=== PATIENT | female | born 1940 | race Caucasian/White ===

== ENCOUNTER 2019-11-28 13:06 | Inpatient (IN) | payer MEDICAID ==
[~2019-11-28] VITALS: Ht 157.5 cm; Wt 88.9 kg
[2019-11-28 18:00] VITALS: BP 136/62
[2019-11-28] MEDS ORDERED: DEXTROSE 50%-WATER 25 GM/50 ML SYRINGE IVP PRN (18:45)
[2019-11-28] MEDS ORDERED: ACETAMINOPHEN 325 MG TABLET PO PRN (20:00)
[2019-11-28] MEDS: DOCUSATE SODIUM 100 MG CAPSULE PO SCH (21:13)
[2019-11-28] MEDS: ATORVASTATIN CALCIUM 40 MG TABLET PO SCH (21:13)
[2019-11-28] MEDS: SENNA 187 MG TABLET PO SCH (21:13)
[2019-11-28] MEDS: INSULIN LISPRO 100 UNITS/ML SQ PRN (21:14)
[2019-11-29 00:53] VITALS: BP 138/68
[2019-11-29 04:49] LABS: GLUCOMETER DEV NAME(LOC) 2WR.1C; GLUCOSE,POINT OF CARE 185 MG/DL (70-110)
[2019-11-29] MEDS ORDERED: METF-961 PO (05:10)
[2019-11-29] MEDS ORDERED: LOSA25TA21 PO (05:10)
[2019-11-29 06:18] LABS: GLUCOMETER DEV NAME(LOC) 2WR.2B; GLUCOSE,POINT OF CARE 117 MG/DL (70-110)
[2019-11-29 07:06] LABS: BASOPHILS % (AUTO) 0.6 % (0.0-2.0); EOSINOPHILS % (AUTO) 3.2 % (1.0-6.0); HEMATOCRIT 38.6 % (36-46); HEMOGLOBIN 13.3 g/dL (12.0-16.0); LYMPHOCYTES # (AUTO) 1.9 K/uL (1.0-4.8); LYMPHOCYTES % (AUTO) 22.4 % (22.0-44.0); MEAN CORPUSCULAR HEMOGLOBIN 31.6 pg (26.0-34.0); MEAN CORPUSCULAR HGB CONC 34.4 G/dL (31.0-37.0); MEAN CORPUSCULAR VOLUME 92 fL (80-100); MONOCYTES # (AUTO) 0.7 K/uL (0.1-1.0); MONOCYTES % (AUTO) 7.6 % (2.0-9.0); NEUTROPHILS # (AUTO) 5.7 K/uL (1.8-7.7); NEUTROPHILS % (AUTO) 66.2 % (40.0-70.0); PLATELET COUNT (AUTO) 274 K/uL (150-450); RED CELL DISTRIBUTION WIDTH 13.3 % (11.5-14.5)
[2019-11-29 07:28] LABS: ALANINE AMINOTRANSFERASE 29 U/L (12-78); ALKALINE PHOSPHATASE 67 U/L (46-116); ANION GAP 8 mmol/L (8-16); ASPARTATE AMINOTRANSFERASE 20 U/L (15-37); BILIRUBIN,TOTAL 0.8 mg/dL (0.1-1.0); CALCIUM, TOTAL 8.7 mg/dL (8.8-10.5); CARBON DIOXIDE 27 mmol/L (22-29); CHLORIDE 103 mmol/L (98-107); CREATININE 0.74 mg/dL (0.60-1.30); GLUCOSE,RANDOM 138 mg/dL (70-110); POTASSIUM 3.5 mmol/L (3.5-5.1); SODIUM SERUM 138 mmol/L (136-145); TOTAL PROTEIN, SERUM 6.5 g/dL (6.4-8.2); UREA NITROGEN, BLOOD 15 mg/dL (7-18)
[2019-11-29 07:29] LABS: GLOMERULAR FILTR. RATE CALC > 60 mL/min (>60)
[2019-11-29 07:40] LABS: ALBUMIN 2.8 g/dL (3.4-5.0)
[2019-11-29 08:48] VITALS: BP 120/47
[2019-11-29] MEDS: ASPIRIN 81 MG EC TABLET PO SCH (09:19)
[2019-11-29] MEDS: DOCUSATE SODIUM 100 MG CAPSULE PO SCH ×2 (09:19→21:03)
[2019-11-29] MEDS: MetFORMIN HCL 500 MG TABLET PO SCH ×2 (09:19→20:52)
[2019-11-29] MEDS: LOSARTAN POTASSIUM 50 MG TABLET PO SCH (09:19)
[2019-11-29] MEDS: MECLIZINE HCL 25 MG TABLET PO PRN (13:58)
[2019-11-29 17:11] LABS: GLUCOMETER DEV NAME(LOC) 2WR.1C; GLUCOSE,POINT OF CARE 134 MG/DL (70-110)
[2019-11-29 19:27] LABS: GLUCOMETER DEV NAME(LOC) 2WR.2B; GLUCOSE,POINT OF CARE 102 MG/DL (70-110)
[2019-11-29 20:13] VITALS: BP 130/62
[2019-11-29] MEDS: ATORVASTATIN CALCIUM 40 MG TABLET PO SCH (21:03)
[2019-11-29] MEDS: SENNA 187 MG TABLET PO SCH (21:03)
[2019-11-29 21:56] LABS: GLUCOMETER DEV NAME(LOC) 2WR.1C; GLUCOSE,POINT OF CARE 112 MG/DL (70-110)
[2019-11-29 23:44] VITALS: BP 131/57
[2019-11-30] MEDS: MELATONIN 3 MG TABLET PO PRN (00:34)
[2019-11-30 06:19] LABS: GLUCOMETER DEV NAME(LOC) 2WR.2B; GLUCOSE,POINT OF CARE 118 MG/DL (70-110)
[2019-11-30 08:50] VITALS: BP 109/63
[2019-11-30] MEDS: MetFORMIN HCL 500 MG TABLET PO SCH ×2 (08:58→17:00)
[2019-11-30] MEDS: MECLIZINE HCL 25 MG TABLET PO PRN (08:58)
[2019-11-30] MEDS: DOCUSATE SODIUM 100 MG CAPSULE PO SCH ×2 (08:58→20:38)
[2019-11-30] MEDS: LOSARTAN POTASSIUM 50 MG TABLET PO SCH (08:58)
[2019-11-30] MEDS: ASPIRIN 81 MG EC TABLET PO SCH (08:58)
[2019-11-30 13:00] LABS: GLUCOMETER DEV NAME(LOC) 2WR.2B; GLUCOSE,POINT OF CARE 135 MG/DL (70-110)
[2019-11-30 15:36] VITALS: BP 114/58
[2019-11-30 17:36] LABS: GLUCOMETER DEV NAME(LOC) 2WR.2B; GLUCOSE,POINT OF CARE 123 MG/DL (70-110)
[2019-11-30 20:33] LABS: APPEARANCE,URINE CLOUDY (CLEAR); BILIRUBIN,URINE NEGATIVE (NEGATIVE); GLUCOSE, URINE (UA) NEGATIVE (NEGATIVE); KETONES,URINE NEGATIVE (NEGATIVE); LEUKOCYTE ESTERASE ,URINE LARGE (NEGATIVE); OCCULT BLOOD,URINE LARGE (NEGATIVE); PH,URINE 6.5 (5.0-8.0); PROTEIN,URINE POS 1+ (NEGATIVE); UROBILINOGEN,URINE 0.2 mg/dL (<=1.0)
[2019-11-30] MEDS: ATORVASTATIN CALCIUM 40 MG TABLET PO SCH (20:36)
[2019-11-30] MEDS: SENNA 187 MG TABLET PO SCH (20:38)
[2019-11-30 20:59] LABS: BACTERIA,URINE Moderate /HPF (None Seen); NITRATE,URINE POSITIVE (NEGATIVE); SQUAMOUS EPITHELIAL CELL,UR Moderate /LPF (None Seen); WBC,URINE 51-100 /HPF (0-5)
[2019-11-30 21:42] LABS: GLUCOMETER DEV NAME(LOC) 2WR.1C; GLUCOSE,POINT OF CARE 127 MG/DL (70-110)
[2019-12-01 01:45] VITALS: BP 123/58
[2019-12-01 06:11] LABS: GLUCOMETER DEV NAME(LOC) 2WR.2B; GLUCOSE,POINT OF CARE 125 MG/DL (70-110)
[2019-12-01] MEDS ORDERED: NITROFURANTOIN MACROCRYSTAL 100 MG CAPSULE PO SCH (09:00)
[2019-12-01] MEDS: DOCUSATE SODIUM 100 MG CAPSULE PO SCH ×2 (09:00→21:00)
[2019-12-01 09:17] VITALS: BP 122/57
[2019-12-01] MEDS: LOSARTAN POTASSIUM 50 MG TABLET PO SCH (09:56)
[2019-12-01] MEDS: MULTIVITAMINS WITH MINERALS, THERAPEUTIC TABLET PO SCH (09:57)
[2019-12-01] MEDS: MetFORMIN HCL 500 MG TABLET PO SCH ×2 (09:57→18:06)
[2019-12-01] MEDS: ASPIRIN 81 MG EC TABLET PO SCH (09:58)
[2019-12-01] MEDS: NITROFURANTOIN/NITROFURAN MAC 100 MG CAPSULE [MACROBID] PO SCH ×2 (09:58→21:14)
[2019-12-01] MEDS: INSULIN LISPRO 100 UNITS/ML SQ PRN (13:44)
[2019-12-01 15:02] LABS: GLUCOMETER DEV NAME(LOC) 2WR.2B; GLUCOSE,POINT OF CARE 169 MG/DL (70-110)
[2019-12-01 15:49] VITALS: BP 126/58
[2019-12-01 20:19] LABS: GLUCOMETER DEV NAME(LOC) 2WR.1C; GLUCOSE,POINT OF CARE 105 MG/DL (70-110)
[2019-12-01] MEDS: SENNA 187 MG TABLET PO SCH (21:00)
[2019-12-01] MEDS: ATORVASTATIN CALCIUM 40 MG TABLET PO SCH (21:13)
[2019-12-01 22:49] LABS: GLUCOMETER DEV NAME(LOC) 2WR.2B; GLUCOSE,POINT OF CARE 122 MG/DL (70-110)
[2019-12-02 05:15] VITALS: BP 128/59
[2019-12-02 05:51] LABS: GLUCOMETER DEV NAME(LOC) 2WR.1C; GLUCOSE,POINT OF CARE 115 MG/DL (70-110)
[2019-12-02] MEDS: DOCUSATE SODIUM 100 MG CAPSULE PO SCH ×2 (09:00→20:09)
[2019-12-02] MEDS: MetFORMIN HCL 500 MG TABLET PO SCH ×2 (09:06→18:01)
[2019-12-02] MEDS: MECLIZINE HCL 25 MG TABLET PO PRN (09:06)
[2019-12-02] MEDS: ASPIRIN 81 MG EC TABLET PO SCH (09:06)
[2019-12-02] MEDS: MULTIVITAMINS WITH MINERALS, THERAPEUTIC TABLET PO SCH (09:06)
[2019-12-02] MEDS: NITROFURANTOIN/NITROFURAN MAC 100 MG CAPSULE [MACROBID] PO SCH ×2 (09:06→20:29)
[2019-12-02] MEDS: LOSARTAN POTASSIUM 50 MG TABLET PO SCH (09:07)
[2019-12-02 09:54] VITALS: BP 122/57
[2019-12-02] MEDS: ENOXAPARIN SODIUM 40 MG/0.4 ML PF SYRINGE SQ SCH (13:44)
[2019-12-02 16:00] VITALS: BP 138/59
[2019-12-02 18:26] LABS: GLUCOMETER DEV NAME(LOC) 2WR.2B; GLUCOSE,POINT OF CARE 123 MG/DL (70-110)
[2019-12-02] MEDS: SENNA 187 MG TABLET PO SCH (20:09)
[2019-12-02] MEDS: ATORVASTATIN CALCIUM 40 MG TABLET PO SCH (20:29)
[2019-12-02] MEDS: MELATONIN 3 MG TABLET PO PRN (20:29)
[2019-12-03] VITALS: BP 129/58
[2019-12-03 04:53] LABS: GLUCOMETER DEV NAME(LOC) 2WR.1C; GLUCOSE,POINT OF CARE 136 MG/DL (70-110)
[2019-12-03 05:18] LABS: GLUCOMETER DEV NAME(LOC) 2WR.2B; GLUCOSE,POINT OF CARE 95 MG/DL (70-110)
[2019-12-03 06:24] LABS: GLUCOMETER DEV NAME(LOC) 2WR.2B; GLUCOSE,POINT OF CARE 109 MG/DL (70-110)
[2019-12-03 07:30] VITALS: BP 141/65
[2019-12-03] MEDS: MECLIZINE HCL 25 MG TABLET PO PRN (07:56)
[2019-12-03] MEDS: DOCUSATE SODIUM 100 MG CAPSULE PO SCH ×2 (09:00→20:38)
[2019-12-03] MEDS: MetFORMIN HCL 500 MG TABLET PO SCH ×3 (10:49→17:24)
[2019-12-03] MEDS: NITROFURANTOIN/NITROFURAN MAC 100 MG CAPSULE [MACROBID] PO SCH (10:50)
[2019-12-03] MEDS: FAMOTIDINE 20 MG TABLET PO SCH (10:50)
[2019-12-03] MEDS: ASPIRIN 81 MG EC TABLET PO SCH (10:50)
[2019-12-03] MEDS: ENOXAPARIN SODIUM 40 MG/0.4 ML PF SYRINGE SQ SCH (10:50)
[2019-12-03] MEDS: MULTIVITAMINS WITH MINERALS, THERAPEUTIC TABLET PO SCH (10:50)
[2019-12-03] MEDS: LOSARTAN POTASSIUM 50 MG TABLET PO SCH (10:50)
[2019-12-03] MEDS: METOCLOPRAMIDE HCL 5 MG TABLET PO PRN (12:17)
[2019-12-03] MEDS: AMOX TR/POT CLAV 500 MG/125 MG TABLET PO SCH ×2 (12:17→20:37)
[2019-12-03 13:06] LABS: BASOPHILS % (AUTO) 0.9 % (0.0-2.0); EOSINOPHILS % (AUTO) 1.4 % (1.0-6.0); HEMATOCRIT 39.5 % (36-46); HEMOGLOBIN 13.7 g/dL (12.0-16.0); LYMPHOCYTES # (AUTO) 1.2 K/uL (1.0-4.8); LYMPHOCYTES % (AUTO) 17.9 % (22.0-44.0); MEAN CORPUSCULAR HEMOGLOBIN 31.5 pg (26.0-34.0); MEAN CORPUSCULAR HGB CONC 34.7 G/dL (31.0-37.0); MEAN CORPUSCULAR VOLUME 91 fL (80-100); MONOCYTES # (AUTO) 0.4 K/uL (0.1-1.0); MONOCYTES % (AUTO) 6.3 % (2.0-9.0); NEUTROPHILS % (AUTO) 73.5 % (40.0-70.0); PLATELET COUNT (AUTO) 291 K/uL (150-450); RED BLOOD CELL COUNT(AUTO) 4.35 MIL/uL (4.00-5.20); RED CELL DISTRIBUTION WIDTH 12.8 % (11.5-14.5)
[2019-12-03 13:12] LABS: GLUCOMETER DEV NAME(LOC) 2WR.2B; GLUCOSE,POINT OF CARE 118 MG/DL (70-110)
[2019-12-03 13:46] LABS: ANION GAP 5 mmol/L (8-16); CARBON DIOXIDE 29 mmol/L (22-29); CHLORIDE 101 mmol/L (98-107); GLOMERULAR FILTR. RATE CALC > 60 mL/min (>60); GLUCOSE,RANDOM 141 mg/dL (70-110); SODIUM SERUM 135 mmol/L (136-145); THYROID STIMULATING HORMONE 1.52 uIU/mL (0.36-3.74); UREA NITROGEN, BLOOD 12 mg/dL (7-18)
[2019-12-03 15:45] VITALS: BP 117/59
[2019-12-03] MEDS: ATORVASTATIN CALCIUM 40 MG TABLET PO SCH (20:38)
[2019-12-03] MEDS: SENNA 187 MG TABLET PO SCH (20:38)
[2019-12-03 21:42] LABS: GLUCOMETER DEV NAME(LOC) 2WR.2B; GLUCOSE,POINT OF CARE 90 MG/DL (70-110)
[2019-12-03 21:42] LABS: GLUCOMETER DEV NAME(LOC) 2WR.2B; GLUCOSE,POINT OF CARE 125 MG/DL (70-110)
[2019-12-04 01:54] VITALS: BP 126/57
[2019-12-04 06:20] LABS: GLUCOMETER DEV NAME(LOC) 2WR.2B; GLUCOSE,POINT OF CARE 110 MG/DL (70-110)
[2019-12-04 08:30] VITALS: BP 123/62
[2019-12-04] MEDS: MULTIVITAMINS WITH MINERALS, THERAPEUTIC TABLET PO SCH (08:33)
[2019-12-04] MEDS: ASPIRIN 81 MG EC TABLET PO SCH (08:34)
[2019-12-04] MEDS: ENOXAPARIN SODIUM 40 MG/0.4 ML PF SYRINGE SQ SCH (08:34)
[2019-12-04] MEDS: LOSARTAN POTASSIUM 50 MG TABLET PO SCH (08:34)
[2019-12-04] MEDS: MECLIZINE HCL 25 MG TABLET PO PRN (08:34)
[2019-12-04] MEDS: DOCUSATE SODIUM 100 MG CAPSULE PO SCH (08:34)
[2019-12-04] MEDS: FAMOTIDINE 20 MG TABLET PO SCH (08:34)
[2019-12-04] MEDS: MetFORMIN HCL 500 MG TABLET PO SCH (08:34)
[2019-12-04] MEDS: AMOX TR/POT CLAV 500 MG/125 MG TABLET PO SCH (08:34)
[2019-12-04] MEDS: METOCLOPRAMIDE HCL 5 MG TABLET PO PRN (10:49)
[2019-12-04] MEDS ORDERED: DEXTROSE 5%-0.45% SODIUM CHL 1,000 ML IV SCH (11:15)
[2019-12-04] MEDS ORDERED: GADOBUTROL 1 MMOL/ML 10 ML VIAL IVP ONE (11:31)
[2019-12-04 17:05] LABS: GLUCOMETER DEV NAME(LOC) 2WR.2B; GLUCOSE,POINT OF CARE 124 MG/DL (70-110)
[2019-12-05] MEDS ORDERED: ASPI-728 PO (14:56)
[2019-12-05] MEDS ORDERED: ATOR40TA28 PO (14:56)
[2019-12-05] MEDS ORDERED: PANT-31 PO (18:51)
== END 2019-12-04 12:59 | disposition still patient (30) | DRG 58 ==
LOC: EDSTATUS 13:19 → 2WR 17:53
PROVIDERS: ADMIT Physical Medicine & Rehabilitation; ATTEND Physical Medicine & Rehabilitation
DX: I69.354 Hemiplegia and hemiparesis following cerebral infarction affecting left non-dominant side (principal); I63.9 Cerebral infarction, unspecified; I10 Essential (primary) hypertension; E11.9 Type 2 diabetes mellitus without complications; R42 Dizziness and giddiness; G93.89 Other specified disorders of brain
CPT/HCPCS: 70450; 84443; 87081; 87086; 92507; 92610; 93005; 93970; 97112; 97163; 97166; 97530; 97535; 99366; A9585; J1650

== ENCOUNTER 2019-12-05 17:31 | Inpatient (IN) | payer MEDICAID ==
[~2019-12-05] VITALS: Ht 157.5 cm; Wt 83.9 kg
[~2019-12-05 17:31] MED LIST: ASPI-728 PO; ATOR40TA28 PO; LOSA25TA21 PO; METF-961 PO
[2019-12-05] MEDS ORDERED: PANT-31 PO (18:51)
[2019-12-05 19:30] VITALS: BP 136/68
[2019-12-05] MEDS ORDERED: METOCLOPRAMIDE HCL 5 MG TABLET PO PRN (19:45)
[2019-12-05] MEDS ORDERED: DEXTROSE 50%-WATER 25 GM/50 ML SYRINGE IVP PRN (19:45)
[2019-12-05] MEDS: ATORVASTATIN CALCIUM 40 MG TABLET PO SCH (21:00)
[2019-12-05] MEDS: DOCUSATE SODIUM 100 MG CAPSULE PO SCH (21:00)
[2019-12-05] MEDS: INSULIN LISPRO 100 UNITS/ML SQ PRN (21:01)
[2019-12-05] MEDS: MELATONIN 3 MG TABLET PO PRN (21:55)
[2019-12-06 03:52] VITALS: BP 127/54
[2019-12-06 06:20] LABS: GLUCOMETER DEV NAME(LOC) 2WR.1C; GLUCOSE,POINT OF CARE 156 MG/DL (70-110)
[2019-12-06 06:20] LABS: GLUCOMETER DEV NAME(LOC) 2WR.1C; GLUCOSE,POINT OF CARE 138 MG/DL (70-110)
[2019-12-06 06:54] LABS: BASOPHILS % (AUTO) 0.7 % (0.0-2.0); EOSINOPHILS % (AUTO) 2.7 % (1.0-6.0); HEMATOCRIT 40.2 % (36-46); HEMOGLOBIN 13.5 g/dL (12.0-16.0); LYMPHOCYTES % (AUTO) 31.1 % (22.0-44.0); MEAN CORPUSCULAR HEMOGLOBIN 30.7 pg (26.0-34.0); MEAN CORPUSCULAR HGB CONC 33.6 G/dL (31.0-37.0); MEAN CORPUSCULAR VOLUME 91 fL (80-100); MONOCYTES # (AUTO) 0.7 K/uL (0.1-1.0); MONOCYTES % (AUTO) 11.1 % (2.0-9.0); NEUTROPHILS # (AUTO) 3.5 K/uL (1.8-7.7); NEUTROPHILS % (AUTO) 54.4 % (40.0-70.0); PLATELET COUNT (AUTO) 308 K/uL (150-450); RED BLOOD CELL COUNT(AUTO) 4.41 MIL/uL (4.00-5.20)
[2019-12-06 07:15] VITALS: BP 122/76
[2019-12-06 08:00] VITALS: BP 122/76
[2019-12-06 08:09] LABS: ALANINE AMINOTRANSFERASE 32 U/L (12-78); ALBUMIN 2.9 g/dL (3.4-5.0); ALKALINE PHOSPHATASE 66 U/L (46-116); ANION GAP 7 mmol/L (8-16); ASPARTATE AMINOTRANSFERASE 33 U/L (15-37); BILIRUBIN,TOTAL 0.6 mg/dL (0.1-1.0); CALCIUM, TOTAL 9.1 mg/dL (8.8-10.5); CARBON DIOXIDE 27 mmol/L (22-29); CHLORIDE 102 mmol/L (98-107); CREATININE 0.83 mg/dL (0.60-1.30); GLUCOSE,RANDOM 114 mg/dL (70-110); POTASSIUM 3.8 mmol/L (3.5-5.1); SODIUM SERUM 136 mmol/L (136-145); TOTAL PROTEIN, SERUM 6.9 g/dL (6.4-8.2); UREA NITROGEN, BLOOD 11 mg/dL (7-18)
[2019-12-06 08:10] LABS: GLOMERULAR FILTR. RATE CALC > 60 mL/min (>60)
[2019-12-06] MEDS: POLYETHYLENE GLYCOL 3350 17 GM PACKET PO SCH (09:00)
[2019-12-06] MEDS: MetFORMIN HCL 500 MG TABLET PO SCH ×2 (09:15→17:00)
[2019-12-06] MEDS: DOCUSATE SODIUM 100 MG CAPSULE PO SCH ×2 (09:15→21:54)
[2019-12-06] MEDS: ASPIRIN 81 MG EC TABLET PO SCH (09:15)
[2019-12-06] MEDS: ENOXAPARIN SODIUM 40 MG/0.4 ML PF SYRINGE SQ SCH (09:16)
[2019-12-06] MEDS: LOSARTAN POTASSIUM 50 MG TABLET PO SCH (09:16)
[2019-12-06 12:42] LABS: GLUCOMETER DEV NAME(LOC) 2WR.2B; GLUCOSE,POINT OF CARE 149 MG/DL (70-110)
[2019-12-06] MEDS: INSULIN LISPRO 100 UNITS/ML SQ PRN (13:21)
[2019-12-06 15:54] VITALS: BP 101/62
[2019-12-06 18:23] LABS: GLUCOMETER DEV NAME(LOC) 2WR.2B; GLUCOSE,POINT OF CARE 92 MG/DL (70-110)
[2019-12-06] MEDS: ATORVASTATIN CALCIUM 40 MG TABLET PO SCH (21:54)
[2019-12-06 23:18] LABS: GLUCOMETER DEV NAME(LOC) 2WR.2B; GLUCOSE,POINT OF CARE 114 MG/DL (70-110)
[2019-12-06] MEDS: MELATONIN 3 MG TABLET PO PRN (23:28)
[2019-12-06 23:42] VITALS: BP 145/74
[2019-12-07 05:40] LABS: GLUCOMETER DEV NAME(LOC) 2WR.1C; GLUCOSE,POINT OF CARE 122 MG/DL (70-110)
[2019-12-07 07:09] VITALS: BP 134/60
[2019-12-07] MEDS: MECLIZINE HCL 25 MG TABLET PO PRN (08:19)
[2019-12-07] MEDS: ASPIRIN 81 MG EC TABLET PO SCH (08:19)
[2019-12-07] MEDS: ENOXAPARIN SODIUM 40 MG/0.4 ML PF SYRINGE SQ SCH (08:20)
[2019-12-07] MEDS: DOCUSATE SODIUM 100 MG CAPSULE PO SCH ×2 (08:20→20:55)
[2019-12-07] MEDS: LOSARTAN POTASSIUM 50 MG TABLET PO SCH (08:20)
[2019-12-07] MEDS: MetFORMIN HCL 500 MG TABLET PO SCH ×2 (08:20→17:00)
[2019-12-07] MEDS: POLYETHYLENE GLYCOL 3350 17 GM PACKET PO SCH (11:12)
[2019-12-07 13:26] LABS: GLUCOMETER DEV NAME(LOC) 2WR.2B; GLUCOSE,POINT OF CARE 142 MG/DL (70-110)
[2019-12-07 16:18] VITALS: BP 112/60
[2019-12-07] MEDS: METOCLOPRAMIDE HCL 5 MG TABLET PO SCH (17:00)
[2019-12-07 18:05] LABS: GLUCOMETER DEV NAME(LOC) 2WR.2B; GLUCOSE,POINT OF CARE 110 MG/DL (70-110)
[2019-12-07] MEDS: ATORVASTATIN CALCIUM 40 MG TABLET PO SCH (20:55)
[2019-12-07 22:08] LABS: GLUCOMETER DEV NAME(LOC) 2WR.2B; GLUCOSE,POINT OF CARE 90 MG/DL (70-110)
[2019-12-07 23:26] VITALS: BP 122/56
[2019-12-08 05:59] LABS: GLUCOMETER DEV NAME(LOC) 2WR.2B; GLUCOSE,POINT OF CARE 117 MG/DL (70-110)
[2019-12-08] MEDS: METOCLOPRAMIDE HCL 5 MG TABLET PO SCH ×3 (06:01→16:51)
[2019-12-08] MEDS: MetFORMIN HCL 500 MG TABLET PO SCH ×2 (07:30→16:52)
[2019-12-08 07:45] VITALS: BP 105/58
[2019-12-08] MEDS: ENOXAPARIN SODIUM 40 MG/0.4 ML PF SYRINGE SQ SCH (09:34)
[2019-12-08] MEDS: LOSARTAN POTASSIUM 50 MG TABLET PO SCH (09:34)
[2019-12-08] MEDS: DOCUSATE SODIUM 100 MG CAPSULE PO SCH ×2 (09:34→20:39)
[2019-12-08] MEDS: POLYETHYLENE GLYCOL 3350 17 GM PACKET PO SCH (09:34)
[2019-12-08] MEDS: ASPIRIN 81 MG EC TABLET PO SCH (09:34)
[2019-12-08 12:52] LABS: GLUCOMETER DEV NAME(LOC) 2WR.2B; GLUCOSE,POINT OF CARE 144 MG/DL (70-110)
[2019-12-08 15:25] VITALS: BP 110/62
[2019-12-08] MEDS: ATORVASTATIN CALCIUM 40 MG TABLET PO SCH (20:39)
[2019-12-08 21:58] LABS: GLUCOMETER DEV NAME(LOC) 2WR.2B; GLUCOSE,POINT OF CARE 102 MG/DL (70-110)
[2019-12-08 21:58] LABS: GLUCOMETER DEV NAME(LOC) 2WR.2B; GLUCOSE,POINT OF CARE 91 MG/DL (70-110)
[2019-12-09 01:21] VITALS: BP 129/72
[2019-12-09] MEDS: METOCLOPRAMIDE HCL 5 MG TABLET PO SCH (05:58)
[2019-12-09 06:15] LABS: GLUCOMETER DEV NAME(LOC) 2WR.2B; GLUCOSE,POINT OF CARE 111 MG/DL (70-110)
[2019-12-09 07:28] VITALS: BP 138/63
[2019-12-09] MEDS: MetFORMIN HCL 500 MG TABLET PO SCH (07:30)
[2019-12-09] MEDS ORDERED: GADOBUTROL 1 MMOL/ML 10 ML VIAL IVP ONE (08:30)
[2019-12-09] MEDS: POLYETHYLENE GLYCOL 3350 17 GM PACKET PO SCH (09:00)
[2019-12-09] MEDS: LOSARTAN POTASSIUM 50 MG TABLET PO SCH (09:39)
[2019-12-09] MEDS: 0.9% SODIUM CHLORIDE 10 ML SYRINGE IVP SCH ×3 (09:39→23:10)
[2019-12-09] MEDS: ASPIRIN 81 MG EC TABLET PO SCH (09:40)
[2019-12-09] MEDS: DOCUSATE SODIUM 100 MG CAPSULE PO SCH ×2 (09:41→20:18)
[2019-12-09] MEDS: ENOXAPARIN SODIUM 40 MG/0.4 ML PF SYRINGE SQ SCH (09:41)
[2019-12-09 13:44] LABS: GLUCOMETER DEV NAME(LOC) 2WR.2B; GLUCOSE,POINT OF CARE 135 MG/DL (70-110)
[2019-12-09 15:20] VITALS: BP 108/58
[2019-12-09 18:55] LABS: GLUCOMETER DEV NAME(LOC) 2WR.2B; GLUCOSE,POINT OF CARE 143 MG/DL (70-110)
[2019-12-09] MEDS: ATORVASTATIN CALCIUM 40 MG TABLET PO SCH (20:19)
[2019-12-09] MEDS: INSULIN LISPRO 100 UNITS/ML SQ PRN (20:42)
[2019-12-09 21:44] LABS: GLUCOMETER DEV NAME(LOC) 2WR.2B; GLUCOSE,POINT OF CARE 168 MG/DL (70-110)
[2019-12-09 23:30] VITALS: BP 115/61
[2019-12-10 06:03] LABS: GLUCOMETER DEV NAME(LOC) 2WR.1C; GLUCOSE,POINT OF CARE 130 MG/DL (70-110)
[2019-12-10 07:42] VITALS: BP 110/54
[2019-12-10] MEDS: INSULIN LISPRO 100 UNITS/ML SQ PRN ×2 (08:07→12:18)
[2019-12-10] MEDS: ENOXAPARIN SODIUM 40 MG/0.4 ML PF SYRINGE SQ SCH (08:14)
[2019-12-10] MEDS: LOSARTAN POTASSIUM 50 MG TABLET PO SCH (08:14)
[2019-12-10] MEDS: 0.9% SODIUM CHLORIDE 10 ML SYRINGE IVP SCH ×2 (08:14→15:59)
[2019-12-10] MEDS: ASPIRIN 81 MG EC TABLET PO SCH (08:14)
[2019-12-10] MEDS: DOCUSATE SODIUM 100 MG CAPSULE PO SCH ×2 (08:14→21:10)
[2019-12-10 08:17] VITALS: BP 134/69
[2019-12-10] MEDS: POLYETHYLENE GLYCOL 3350 17 GM PACKET PO SCH (09:00)
[2019-12-10 12:18] LABS: GLUCOMETER DEV NAME(LOC) 2WR.1C; GLUCOSE,POINT OF CARE 153 MG/DL (70-110)
[2019-12-10 15:53] VITALS: BP 121/70
[2019-12-10 20:38] LABS: GLUCOMETER DEV NAME(LOC) 2WR.1C; GLUCOSE,POINT OF CARE 119 MG/DL (70-110)
[2019-12-10] MEDS: ATORVASTATIN CALCIUM 40 MG TABLET PO SCH (21:10)
[2019-12-10 23:00] VITALS: BP 116/50
[2019-12-11 05:22] LABS: GLUCOMETER DEV NAME(LOC) 2WR.1C; GLUCOSE,POINT OF CARE 105 MG/DL (70-110)
[2019-12-11 05:53] LABS: GLUCOMETER DEV NAME(LOC) 2WR.2B; GLUCOSE,POINT OF CARE 119 MG/DL (70-110)
[2019-12-11] MEDS: POLYETHYLENE GLYCOL 3350 17 GM PACKET PO SCH ×2 (09:00→09:13)
[2019-12-11] MEDS: DOCUSATE SODIUM 100 MG CAPSULE PO SCH ×2 (09:14→20:16)
[2019-12-11] MEDS: ENOXAPARIN SODIUM 40 MG/0.4 ML PF SYRINGE SQ SCH (09:14)
[2019-12-11] MEDS: MECLIZINE HCL 25 MG TABLET PO PRN (09:14)
[2019-12-11] MEDS: LOSARTAN POTASSIUM 50 MG TABLET PO SCH (09:14)
[2019-12-11] MEDS: ASPIRIN 81 MG EC TABLET PO SCH (09:14)
[2019-12-11 09:15] VITALS: BP 118/52
[2019-12-11] MEDS: INSULIN LISPRO 100 UNITS/ML SQ PRN (12:32)
[2019-12-11 13:08] LABS: GLUCOMETER DEV NAME(LOC) 2WR.2B; GLUCOSE,POINT OF CARE 141 MG/DL (70-110)
[2019-12-11 16:17] VITALS: BP 109/63
[2019-12-11 17:48] LABS: GLUCOMETER DEV NAME(LOC) 2WR.1C; GLUCOSE,POINT OF CARE 107 MG/DL (70-110)
[2019-12-11] MEDS: ATORVASTATIN CALCIUM 40 MG TABLET PO SCH (20:16)
[2019-12-11 21:58] LABS: GLUCOMETER DEV NAME(LOC) 2WR.2B; GLUCOSE,POINT OF CARE 117 MG/DL (70-110)
[2019-12-12 02:30] VITALS: BP 111/57
[2019-12-12 06:10] LABS: GLUCOMETER DEV NAME(LOC) 2WR.2B; GLUCOSE,POINT OF CARE 129 MG/DL (70-110)
[2019-12-12 07:30] VITALS: BP_SYST 119; BP_SYST 134; BP_DIAS 47; BP_DIAS 62
[2019-12-12] MEDS: POLYETHYLENE GLYCOL 3350 17 GM PACKET PO SCH (07:38)
[2019-12-12] MEDS: LOSARTAN POTASSIUM 50 MG TABLET PO SCH (07:39)
[2019-12-12] MEDS: DOCUSATE SODIUM 100 MG CAPSULE PO SCH ×2 (07:39→20:33)
[2019-12-12] MEDS: ASPIRIN 81 MG EC TABLET PO SCH (07:39)
[2019-12-12] MEDS: ENOXAPARIN SODIUM 40 MG/0.4 ML PF SYRINGE SQ SCH (07:39)
[2019-12-12] MEDS: ACETAMINOPHEN 325 MG TABLET PO PRN (13:44)
[2019-12-12 16:58] VITALS: BP 118/58
[2019-12-12] MEDS: ATORVASTATIN CALCIUM 40 MG TABLET PO SCH (20:33)
[2019-12-12] MEDS: INSULIN LISPRO 100 UNITS/ML SQ PRN (20:37)
[2019-12-12 23:41] VITALS: BP 125/57
[2019-12-13 05:15] LABS: GLUCOMETER DEV NAME(LOC) 2WR.1C; GLUCOSE,POINT OF CARE 138 MG/DL (70-110)
[2019-12-13 05:15] LABS: GLUCOMETER DEV NAME(LOC) 2WR.1C; GLUCOSE,POINT OF CARE 132 MG/DL (70-110)
[2019-12-13 05:15] LABS: GLUCOMETER DEV NAME(LOC) 2WR.1C; GLUCOSE,POINT OF CARE 178 MG/DL (70-110)
[2019-12-13 06:24] LABS: GLUCOMETER DEV NAME(LOC) 2WR.2B; GLUCOSE,POINT OF CARE 120 MG/DL (70-110)
[2019-12-13 07:14] VITALS: BP 124/59
[2019-12-13] MEDS: LOSARTAN POTASSIUM 50 MG TABLET PO SCH (08:35)
[2019-12-13] MEDS: ASPIRIN 81 MG EC TABLET PO SCH (08:35)
[2019-12-13] MEDS: ENOXAPARIN SODIUM 40 MG/0.4 ML PF SYRINGE SQ SCH (08:35)
[2019-12-13] MEDS: POLYETHYLENE GLYCOL 3350 17 GM PACKET PO SCH (08:41)
[2019-12-13] MEDS: DOCUSATE SODIUM 100 MG CAPSULE PO SCH ×2 (08:41→20:54)
[2019-12-13] MEDS: ACETAMINOPHEN 325 MG TABLET PO PRN (08:56)
[2019-12-13 12:55] LABS: GLUCOMETER DEV NAME(LOC) 2WR.2B; GLUCOSE,POINT OF CARE 147 MG/DL (70-110)
[2019-12-13 18:00] VITALS: BP 108/62
[2019-12-13] MEDS: ATORVASTATIN CALCIUM 40 MG TABLET PO SCH (20:54)
[2019-12-13 20:57] LABS: GLUCOMETER DEV NAME(LOC) 2WR.1C; GLUCOSE,POINT OF CARE 163 MG/DL (70-110)
[2019-12-13] MEDS: INSULIN LISPRO 100 UNITS/ML SQ PRN (21:02)
[2019-12-13 21:10] LABS: GLUCOMETER DEV NAME(LOC) 2WR.1C; GLUCOSE,POINT OF CARE 165 MG/DL (70-110)
[2019-12-14 02:12] VITALS: BP 117/62
[2019-12-14 06:02] LABS: GLUCOMETER DEV NAME(LOC) 2WR.2B; GLUCOSE,POINT OF CARE 126 MG/DL (70-110)
[2019-12-14 09:00] VITALS: BP 131/70
[2019-12-14] MEDS: DOCUSATE SODIUM 100 MG CAPSULE PO SCH ×2 (09:00→20:30)
[2019-12-14] MEDS: POLYETHYLENE GLYCOL 3350 17 GM PACKET PO SCH (09:00)
[2019-12-14] MEDS: LOSARTAN POTASSIUM 50 MG TABLET PO SCH (09:08)
[2019-12-14] MEDS: ASPIRIN 81 MG EC TABLET PO SCH (09:09)
[2019-12-14] MEDS: ENOXAPARIN SODIUM 40 MG/0.4 ML PF SYRINGE SQ SCH (09:09)
[2019-12-14 13:26] LABS: GLUCOMETER DEV NAME(LOC) 2WR.1C; GLUCOSE,POINT OF CARE 148 MG/DL (70-110)
[2019-12-14 18:39] LABS: GLUCOMETER DEV NAME(LOC) 2WR.2B; GLUCOSE,POINT OF CARE 119 MG/DL (70-110)
[2019-12-14] MEDS: ATORVASTATIN CALCIUM 40 MG TABLET PO SCH (20:30)
[2019-12-14 22:18] LABS: GLUCOMETER DEV NAME(LOC) 2WR.1C; GLUCOSE,POINT OF CARE 116 MG/DL (70-110)
[2019-12-14 22:57] VITALS: BP 115/62
[2019-12-14 23:30] VITALS: BP 127/59
[2019-12-15 06:11] LABS: GLUCOMETER DEV NAME(LOC) 2WR.1C; GLUCOSE,POINT OF CARE 127 MG/DL (70-110)
[2019-12-15] MEDS: DOCUSATE SODIUM 100 MG CAPSULE PO SCH ×2 (09:00→21:24)
[2019-12-15] MEDS: POLYETHYLENE GLYCOL 3350 17 GM PACKET PO SCH (09:00)
[2019-12-15 09:15] VITALS: BP 124/62
[2019-12-15] MEDS: ENOXAPARIN SODIUM 40 MG/0.4 ML PF SYRINGE SQ SCH (09:18)
[2019-12-15] MEDS: ASPIRIN 81 MG EC TABLET PO SCH (09:19)
[2019-12-15] MEDS: LOSARTAN POTASSIUM 50 MG TABLET PO SCH (09:19)
[2019-12-15 12:15] LABS: GLUCOMETER DEV NAME(LOC) 2WR.2B; GLUCOSE,POINT OF CARE 151 MG/DL (70-110)
[2019-12-15] MEDS: INSULIN LISPRO 100 UNITS/ML SQ PRN ×2 (13:35→21:25)
[2019-12-15 16:53] VITALS: BP 116/62
[2019-12-15 17:50] LABS: GLUCOMETER DEV NAME(LOC) 2WR.1C; GLUCOSE,POINT OF CARE 128 MG/DL (70-110)
[2019-12-15] MEDS: ATORVASTATIN CALCIUM 40 MG TABLET PO SCH (21:24)
[2019-12-15 22:41] LABS: GLUCOMETER DEV NAME(LOC) 2WR.1C; GLUCOSE,POINT OF CARE 141 MG/DL (70-110)
[2019-12-16 03:00] VITALS: BP 112/58
[2019-12-16 05:56] LABS: GLUCOMETER DEV NAME(LOC) 2WR.2B; GLUCOSE,POINT OF CARE 134 MG/DL (70-110)
[2019-12-16] MEDS: POLYETHYLENE GLYCOL 3350 17 GM PACKET PO SCH (09:00)
[2019-12-16] MEDS: ONDANSETRON HCL 4 MG TABLET PO PRN (09:33)
[2019-12-16 09:34] VITALS: BP 125/66
[2019-12-16] MEDS: LOSARTAN POTASSIUM 50 MG TABLET PO SCH (09:34)
[2019-12-16] MEDS: DOCUSATE SODIUM 100 MG CAPSULE PO SCH ×2 (09:34→21:04)
[2019-12-16] MEDS: MULTIVITAMINS WITH MINERALS, THERAPEUTIC TABLET PO SCH (09:34)
[2019-12-16] MEDS: ASPIRIN 81 MG EC TABLET PO SCH (09:34)
[2019-12-16] MEDS: ENOXAPARIN SODIUM 40 MG/0.4 ML PF SYRINGE SQ SCH (09:34)
[2019-12-16 12:20] LABS: GLUCOMETER DEV NAME(LOC) 2WR.2B; GLUCOSE,POINT OF CARE 157 MG/DL (70-110)
[2019-12-16 15:50] VITALS: BP 111/66
[2019-12-16 18:33] LABS: GLUCOMETER DEV NAME(LOC) 2WR.2B; GLUCOSE,POINT OF CARE 144 MG/DL (70-110)
[2019-12-16 20:15] VITALS: BP 125/69
[2019-12-16] MEDS: ATORVASTATIN CALCIUM 40 MG TABLET PO SCH (21:05)
[2019-12-16 23:20] LABS: GLUCOMETER DEV NAME(LOC) 2WR.2B; GLUCOSE,POINT OF CARE 143 MG/DL (70-110)
[2019-12-16 23:55] VITALS: BP 118/69
[2019-12-17 06:00] VITALS: BP 131/75
[2019-12-17 06:27] LABS: GLUCOMETER DEV NAME(LOC) 2WR.2B; GLUCOSE,POINT OF CARE 133 MG/DL (70-110)
[2019-12-17 08:26] LABS: BASOPHILS % (AUTO) 0.8 % (0.0-2.0); HEMATOCRIT 40.1 % (36-46); HEMOGLOBIN 13.3 g/dL (12.0-16.0); LYMPHOCYTES # (AUTO) 2.1 K/uL (1.0-4.8); LYMPHOCYTES % (AUTO) 41.5 % (22.0-44.0); MEAN CORPUSCULAR HEMOGLOBIN 30.4 pg (26.0-34.0); MEAN CORPUSCULAR HGB CONC 33.2 G/dL (31.0-37.0); MEAN CORPUSCULAR VOLUME 92 fL (80-100); MONOCYTES # (AUTO) 0.6 K/uL (0.1-1.0); MONOCYTES % (AUTO) 12.2 % (2.0-9.0); NEUTROPHILS # (AUTO) 2.1 K/uL (1.8-7.7); NEUTROPHILS % (AUTO) 41.5 % (40.0-70.0); PLATELET COUNT (AUTO) 295 K/uL (150-450); RED BLOOD CELL COUNT(AUTO) 4.38 MIL/uL (4.00-5.20); RED CELL DISTRIBUTION WIDTH 12.9 % (11.5-14.5)
[2019-12-17 08:45] VITALS: BP 118/64
[2019-12-17 08:47] LABS: BILIRUBIN,TOTAL 0.5 mg/dL (0.1-1.0); CALCIUM, TOTAL 9.1 mg/dL (8.8-10.5); CREATININE 1.01 mg/dL (0.60-1.30); POTASSIUM 3.8 mmol/L (3.5-5.1); TOTAL PROTEIN, SERUM 6.7 g/dL (6.4-8.2)
[2019-12-17] MEDS: POLYETHYLENE GLYCOL 3350 17 GM PACKET PO SCH (09:00)
[2019-12-17] MEDS: DOCUSATE SODIUM 100 MG CAPSULE PO SCH ×3 (09:13→21:43)
[2019-12-17] MEDS: LOSARTAN POTASSIUM 50 MG TABLET PO SCH (09:13)
[2019-12-17] MEDS: MECLIZINE HCL 25 MG TABLET PO PRN (09:13)
[2019-12-17] MEDS: MULTIVITAMINS WITH MINERALS, THERAPEUTIC TABLET PO SCH (09:13)
[2019-12-17] MEDS: ONDANSETRON HCL 4 MG TABLET PO PRN (10:05)
[2019-12-17] MEDS: FAMOTIDINE 20 MG TABLET PO SCH ×2 (11:38→21:42)
[2019-12-17 13:00] VITALS: BP 118/59
[2019-12-17 15:44] LABS: GLUCOMETER DEV NAME(LOC) 2WR.1C; GLUCOSE,POINT OF CARE 166 MG/DL (70-110)
[2019-12-17 16:37] VITALS: BP 116/55
[2019-12-17] MEDS: INSULIN LISPRO 100 UNITS/ML SQ PRN (17:47)
[2019-12-17 20:30] VITALS: BP 136/78
[2019-12-17] MEDS: ATORVASTATIN CALCIUM 40 MG TABLET PO SCH (21:42)
[2019-12-17 22:24] LABS: GLUCOMETER DEV NAME(LOC) 2WR.1C; GLUCOSE,POINT OF CARE 210 MG/DL (70-110)
[2019-12-17 22:24] LABS: GLUCOMETER DEV NAME(LOC) 2WR.1C; GLUCOSE,POINT OF CARE 97 MG/DL (70-110)
[2019-12-17 23:30] VITALS: BP 106/58
[2019-12-18 05:30] VITALS: BP 119/59
[2019-12-18 05:55] LABS: GLUCOMETER DEV NAME(LOC) 2WR.2B; GLUCOSE,POINT OF CARE 147 MG/DL (70-110)
[2019-12-18] MEDS: POLYETHYLENE GLYCOL 3350 17 GM PACKET PO SCH (09:00)
[2019-12-18 09:20] VITALS: BP 116/55
[2019-12-18 09:40] VITALS: BP 116/55
[2019-12-18] MEDS: LOSARTAN POTASSIUM 50 MG TABLET PO SCH (09:40)
[2019-12-18] MEDS: FAMOTIDINE 20 MG TABLET PO SCH ×2 (09:40→21:34)
[2019-12-18] MEDS: DOCUSATE SODIUM 100 MG CAPSULE PO SCH ×2 (09:40→21:00)
[2019-12-18] MEDS: MULTIVITAMINS WITH MINERALS, THERAPEUTIC TABLET PO SCH (09:40)
[2019-12-18] MEDS: INSULIN LISPRO 100 UNITS/ML SQ PRN ×3 (09:42→21:45)
[2019-12-18 11:53] LABS: GLUCOMETER DEV NAME(LOC) 2WR.2B; GLUCOSE,POINT OF CARE 138 MG/DL (70-110)
[2019-12-18 15:30] VITALS: BP 110/50
[2019-12-18 17:54] LABS: GLUCOMETER DEV NAME(LOC) 2WR.1C; GLUCOSE,POINT OF CARE 171 MG/DL (70-110)
[2019-12-18] MEDS: ATORVASTATIN CALCIUM 40 MG TABLET PO SCH (21:34)
[2019-12-18 23:00] VITALS: BP 126/64
[2019-12-19 05:50] LABS: GLUCOMETER DEV NAME(LOC) 2WR.1C; GLUCOSE,POINT OF CARE 206 MG/DL (70-110)
[2019-12-19 05:58] LABS: GLUCOMETER DEV NAME(LOC) 2WR.2B; GLUCOSE,POINT OF CARE 111 MG/DL (70-110)
[2019-12-19 08:01] VITALS: BP 124/56
[2019-12-19] MEDS: METOCLOPRAMIDE HCL 5 MG TABLET PO PRN (09:24)
[2019-12-19] MEDS: LOSARTAN POTASSIUM 50 MG TABLET PO SCH (09:37)
[2019-12-19] MEDS: MULTIVITAMINS WITH MINERALS, THERAPEUTIC TABLET PO SCH (09:37)
[2019-12-19] MEDS: POLYETHYLENE GLYCOL 3350 17 GM PACKET PO SCH (09:37)
[2019-12-19] MEDS: FAMOTIDINE 20 MG TABLET PO SCH ×2 (09:37→20:51)
[2019-12-19] MEDS: DOCUSATE SODIUM 100 MG CAPSULE PO SCH ×2 (09:37→20:51)
[2019-12-19] MEDS: INSULIN LISPRO 100 UNITS/ML SQ PRN (13:00)
[2019-12-19 15:40] LABS: GLUCOMETER DEV NAME(LOC) 2WR.1C; GLUCOSE,POINT OF CARE 204 MG/DL (70-110)
[2019-12-19 16:01] VITALS: BP 116/51
[2019-12-19 18:00] LABS: GLUCOMETER DEV NAME(LOC) 2WR.1C; GLUCOSE,POINT OF CARE 143 MG/DL (70-110)
[2019-12-19] MEDS: ATORVASTATIN CALCIUM 40 MG TABLET PO SCH (20:51)
[2019-12-19 21:13] LABS: GLUCOMETER DEV NAME(LOC) 2WR.1C; GLUCOSE,POINT OF CARE 140 MG/DL (70-110)
[2019-12-20 00:38] VITALS: BP 149/73
[2019-12-20 06:46] LABS: GLUCOMETER DEV NAME(LOC) 2WR.1C; GLUCOSE,POINT OF CARE 124 MG/DL (70-110)
[2019-12-20 07:25] VITALS: BP 127/51
[2019-12-20] MEDS: DOCUSATE SODIUM 100 MG CAPSULE PO SCH ×2 (08:24→21:21)
[2019-12-20] MEDS: LOSARTAN POTASSIUM 50 MG TABLET PO SCH (08:25)
[2019-12-20] MEDS: POLYETHYLENE GLYCOL 3350 17 GM PACKET PO SCH (08:25)
[2019-12-20] MEDS: MULTIVITAMINS WITH MINERALS, THERAPEUTIC TABLET PO SCH (08:25)
[2019-12-20] MEDS: FAMOTIDINE 20 MG TABLET PO SCH ×2 (08:25→21:21)
[2019-12-20] MEDS: METOCLOPRAMIDE HCL 5 MG TABLET PO PRN (13:29)
[2019-12-20 16:00] VITALS: BP 126/72
[2019-12-20 17:22] LABS: GLUCOMETER DEV NAME(LOC) 2WR.1C; GLUCOSE,POINT OF CARE 185 MG/DL (70-110)
[2019-12-20 18:30] LABS: GLUCOMETER DEV NAME(LOC) 2WR.2B; GLUCOSE,POINT OF CARE 138 MG/DL (70-110)
[2019-12-20] MEDS: ATORVASTATIN CALCIUM 40 MG TABLET PO SCH (21:21)
[2019-12-20 22:04] LABS: GLUCOMETER DEV NAME(LOC) 2WR.2B; GLUCOSE,POINT OF CARE 142 MG/DL (70-110)
[2019-12-21] VITALS: BP 145/67
[2019-12-21] MEDS: ONDANSETRON HCL 4 MG TABLET PO PRN ×2 (04:55→10:58)
[2019-12-21 05:49] LABS: GLUCOMETER DEV NAME(LOC) 2WR.1C; GLUCOSE,POINT OF CARE 136 MG/DL (70-110)
[2019-12-21 07:20] VITALS: BP 128/53
[2019-12-21] MEDS: DOCUSATE SODIUM 100 MG CAPSULE PO SCH ×2 (09:02→20:42)
[2019-12-21] MEDS: FAMOTIDINE 20 MG TABLET PO SCH ×2 (09:02→20:42)
[2019-12-21] MEDS: METOCLOPRAMIDE HCL 5 MG TABLET PO PRN (09:02)
[2019-12-21] MEDS: LOSARTAN POTASSIUM 50 MG TABLET PO SCH (09:02)
[2019-12-21] MEDS: MULTIVITAMINS WITH MINERALS, THERAPEUTIC TABLET PO SCH (09:02)
[2019-12-21] MEDS: POLYETHYLENE GLYCOL 3350 17 GM PACKET PO SCH (09:06)
[2019-12-21 12:13] LABS: GLUCOMETER DEV NAME(LOC) 2WR.2B; GLUCOSE,POINT OF CARE 159 MG/DL (70-110)
[2019-12-21 15:15] VITALS: BP 120/68
[2019-12-21] MEDS: ATORVASTATIN CALCIUM 40 MG TABLET PO SCH (20:42)
[2019-12-21 23:54] VITALS: BP 123/52
[2019-12-22 02:00] LABS: GLUCOMETER DEV NAME(LOC) 2WR.1C; GLUCOSE,POINT OF CARE 131 MG/DL (70-110)
[2019-12-22 02:00] LABS: GLUCOMETER DEV NAME(LOC) 2WR.1C; GLUCOSE,POINT OF CARE 147 MG/DL (70-110)
[2019-12-22] MEDS ORDERED: LOSA50TA37 PO (04:57)
[2019-12-22] MEDS ORDERED: DOCU-275 PO (04:59)
[2019-12-22] MEDS ORDERED: MULT-1239 PO (05:02)
[2019-12-22] MEDS ORDERED: POLY17PO PO (05:02)
[2019-12-22] MEDS ORDERED: FAMO20 PO (05:02)
[2019-12-22] MEDS ORDERED: INSU100V SQ (05:05)
[2019-12-22 09:30] VITALS: BP 131/67
[2019-12-22] MEDS: POLYETHYLENE GLYCOL 3350 17 GM PACKET PO SCH (09:39)
[2019-12-22] MEDS: FAMOTIDINE 20 MG TABLET PO SCH ×2 (09:39→21:31)
[2019-12-22] MEDS: MULTIVITAMINS WITH MINERALS, THERAPEUTIC TABLET PO SCH (09:39)
[2019-12-22] MEDS: LOSARTAN POTASSIUM 50 MG TABLET PO SCH (09:39)
[2019-12-22] MEDS: DOCUSATE SODIUM 100 MG CAPSULE PO SCH ×2 (09:39→21:32)
[2019-12-22 16:00] VITALS: BP 126/56
[2019-12-22] MEDS: ATORVASTATIN CALCIUM 40 MG TABLET PO SCH (21:32)
[2019-12-22 22:00] LABS: GLUCOMETER DEV NAME(LOC) 2WR.2B; GLUCOSE,POINT OF CARE 146 MG/DL (70-110)
[2019-12-23 04:23] VITALS: BP 140/75
[2019-12-23 05:34] LABS: GLUCOMETER DEV NAME(LOC) 2WR.1C; GLUCOSE,POINT OF CARE 129 MG/DL (70-110)
[2019-12-23 05:34] LABS: GLUCOMETER DEV NAME(LOC) 2WR.1C; GLUCOSE,POINT OF CARE 124 MG/DL (70-110)
[2019-12-23 05:34] LABS: GLUCOMETER DEV NAME(LOC) 2WR.1C; GLUCOSE,POINT OF CARE 180 MG/DL (70-110)
[2019-12-23 06:19] LABS: GLUCOMETER DEV NAME(LOC) 2WR.1C; GLUCOSE,POINT OF CARE 156 MG/DL (70-110)
[2019-12-23 08:30] VITALS: BP 119/59
[2019-12-23] MEDS: METOCLOPRAMIDE HCL 5 MG TABLET PO PRN (08:31)
[2019-12-23] MEDS: FAMOTIDINE 20 MG TABLET PO SCH (08:56)
[2019-12-23] MEDS: LOSARTAN POTASSIUM 50 MG TABLET PO SCH (08:56)
[2019-12-23] MEDS: MULTIVITAMINS WITH MINERALS, THERAPEUTIC TABLET PO SCH (08:56)
[2019-12-23] MEDS: DOCUSATE SODIUM 100 MG CAPSULE PO SCH ×2 (08:56→20:03)
[2019-12-23] MEDS: POLYETHYLENE GLYCOL 3350 17 GM PACKET PO SCH (09:00)
[2019-12-23 09:37] LABS: ALANINE AMINOTRANSFERASE 45 U/L (12-78); ALBUMIN 3.5 g/dL (3.4-5.0); ALKALINE PHOSPHATASE 68 U/L (46-116); ANION GAP 5 mmol/L (8-16); ASPARTATE AMINOTRANSFERASE 37 U/L (15-37); BILIRUBIN,TOTAL 0.7 mg/dL (0.1-1.0); CALCIUM, TOTAL 9.8 mg/dL (8.8-10.5); CARBON DIOXIDE 31 mmol/L (22-29); CHLORIDE 102 mmol/L (98-107); CREATININE 0.83 mg/dL (0.60-1.30); GLUCOSE,RANDOM 151 mg/dL (70-110); POTASSIUM 4.4 mmol/L (3.5-5.1); SODIUM SERUM 138 mmol/L (136-145); TOTAL PROTEIN, SERUM 7.6 g/dL (6.4-8.2); UREA NITROGEN, BLOOD 9 mg/dL (7-18)
[2019-12-23 09:38] LABS: GLOMERULAR FILTR. RATE CALC > 60 mL/min (>60)
[2019-12-23] MEDS: MECLIZINE HCL 25 MG TABLET PO PRN (10:09)
[2019-12-23 12:26] LABS: GLUCOMETER DEV NAME(LOC) 2WR.2B; GLUCOSE,POINT OF CARE 150 MG/DL (70-110)
[2019-12-23] MEDS: OMEPRAZOLE 20 MG CAPSULE PO SCH (13:27)
[2019-12-23 15:30] VITALS: BP 117/53
[2019-12-23] MEDS ORDERED: ONDANSETRON HCL 4 MG/2 ML VIAL IVP PRN (18:00)
[2019-12-23 18:22] LABS: GLUCOMETER DEV NAME(LOC) 2WR.1C; GLUCOSE,POINT OF CARE 122 MG/DL (70-110)
[2019-12-23] MEDS: SENNA 187 MG TABLET PO SCH (20:02)
[2019-12-23] MEDS: ATORVASTATIN CALCIUM 40 MG TABLET PO SCH (20:03)
[2019-12-23 21:24] LABS: GLUCOMETER DEV NAME(LOC) 2WR.2B; GLUCOSE,POINT OF CARE 135 MG/DL (70-110)
[2019-12-23] MEDS ORDERED: SODIUM CHLORIDE 0.9% 250 ML IV ONE (22:45)
[2019-12-24] VITALS: BP 141/59
[2019-12-24] MEDS ORDERED: DEXTROSE 5%-0.45% SODIUM CHL 1,000 ML IV ONE (00:01)
[2019-12-24] MEDS ORDERED: SODIUM CHLORIDE 0.9% 1,000 ML ONE (04:42)
[2019-12-24 05:32] VITALS: BP 142/65
[2019-12-24 05:37] LABS: GLUCOMETER DEV NAME(LOC) 2WR.2B; GLUCOSE,POINT OF CARE 131 MG/DL (70-110)
[2019-12-24] MEDS ORDERED: OMEP20 PO (05:40)
[2019-12-24] MEDS ORDERED: SENN8.6T90 PO (05:40)
[2019-12-24] MEDS ORDERED: SODIUM CHLORIDE 0.9% 1,000 ML IV ONE (06:15)
[2019-12-24] MEDS ORDERED: MIDAZOLAM HCL 5 MG/ML VIAL ONE (06:40)
[2019-12-24] MEDS ORDERED: FentaNYL CITRATE-PF 100 MCG/2 ML VIAL ONE (06:40)
[2019-12-24 09:40] VITALS: BP 128/67
[2019-12-24] MEDS: LOSARTAN POTASSIUM 50 MG TABLET PO SCH (09:42)
[2019-12-24] MEDS: POLYETHYLENE GLYCOL 3350 17 GM PACKET PO SCH (09:42)
[2019-12-24] MEDS: MULTIVITAMINS WITH MINERALS, THERAPEUTIC TABLET PO SCH (09:42)
[2019-12-24] MEDS: DOCUSATE SODIUM 100 MG CAPSULE PO SCH ×2 (09:42→20:57)
[2019-12-24] MEDS: OMEPRAZOLE 20 MG CAPSULE PO SCH (09:42)
[2019-12-24 15:51] LABS: GLUCOMETER DEV NAME(LOC) 2WR.1C; GLUCOSE,POINT OF CARE 137 MG/DL (70-110)
[2019-12-24 16:00] VITALS: BP 110/69
[2019-12-24 17:34] LABS: GLUCOMETER DEV NAME(LOC) 2WR.1C; GLUCOSE,POINT OF CARE 118 MG/DL (70-110)
[2019-12-24] MEDS: SENNA 187 MG TABLET PO SCH (20:57)
[2019-12-24] MEDS: ATORVASTATIN CALCIUM 40 MG TABLET PO SCH (20:58)
[2019-12-24 22:29] LABS: GLUCOMETER DEV NAME(LOC) 2WR.2B; GLUCOSE,POINT OF CARE 115 MG/DL (70-110)
[2019-12-25 00:18] VITALS: BP 148/50
[2019-12-25 05:42] LABS: GLUCOMETER DEV NAME(LOC) 2WR.2B; GLUCOSE,POINT OF CARE 108 MG/DL (70-110)
[2019-12-25] MEDS: POLYETHYLENE GLYCOL 3350 17 GM PACKET PO SCH (09:00)
[2019-12-25] MEDS ORDERED: ASPIRIN 81 MG CHEWABLE TABLET PO SCH (09:00)
[2019-12-25 09:10] VITALS: BP 128/60
[2019-12-25] MEDS: MULTIVITAMINS WITH MINERALS, THERAPEUTIC TABLET PO SCH (10:00)
[2019-12-25] MEDS: OMEPRAZOLE 20 MG CAPSULE PO SCH (10:00)
[2019-12-25] MEDS: DOCUSATE SODIUM 100 MG CAPSULE PO SCH (10:00)
[2019-12-25] MEDS: LOSARTAN POTASSIUM 50 MG TABLET PO SCH (10:01)
[2019-12-25] MEDS ORDERED: ONDA-104 PO (11:40)
[2019-12-25] MEDS ORDERED: MECL-160 PO (11:40)
[2019-12-25 12:36] LABS: GLUCOMETER DEV NAME(LOC) 2WR.2B; GLUCOSE,POINT OF CARE 137 MG/DL (70-110)
== END 2019-12-25 14:00 | disposition home health service (06) | DRG 45 ==
LOC: 2WR 19:17
PROVIDERS: ADMIT Physical Medicine & Rehabilitation; ATTEND Physical Medicine & Rehabilitation
DX: I63.9 Cerebral infarction, unspecified (principal); I69.393 Ataxia following cerebral infarction; I10 Essential (primary) hypertension; E78.5 Hyperlipidemia, unspecified; E11.9 Type 2 diabetes mellitus without complications; E66.09 Other obesity due to excess calories; R42 Dizziness and giddiness; I69.319 Unspecified symptoms and signs involving cognitive functions following cerebral infarction; R26.9 Unspecified abnormalities of gait and mobility
CPT/HCPCS: 70450; 70553; 74018; 83036; 88305; 88312; 88313; 92507; 92508; 92521; 92610; 97110; 97112; 97116; 97150; 97163; 97166; 97530; 97535; 99366; A9585; J1650; J2250; J2405; J3010; J7030; J7050; Q0162; 36415-L1; 36415-TC